=== PATIENT | male | born 1930 | race Caucasian/White ===

== ENCOUNTER 2017-05-13 09:18 | Outpatient (CLI) | payer MEDICARE, OTHER ==
--- NOTE | 2017-05-14 10:05 | XRAY Report ---
DATE OF SERVICE: 05/13/2017 RIGHT KNEE: 05/13/2017 COMPARISON: None. INDICATION: Knee joint pain. TECHNIQUE: Three views of the right knee. FINDINGS: There are mild tricompartmental degenerative changes. No effusion. No evidence of acute fracture. Anatomic alignment. There are several posterior ossific fragments. Difficult to completely exclude a loose body. IMPRESSION: 1. MILD TRICOMPARTMENTAL OSTEOARTHRITIS. 2. POSTERIOR LOOSE BODY DIFFICULT TO EXCLUDE. CORRELATE CLINICALLY. TD: 05/14/2017 10:38 MTDD
== END 2017-05-13 09:19 | disposition home or self-care (01) ==
LOC: DI 09:18
PROVIDERS: ATTEND Internal Medicine
DX: M17.11 Unilateral primary osteoarthritis, right knee (principal)

== ENCOUNTER 2018-05-12 08:00 | Outpatient (CLI) | payer MEDICARE, OTHER ==
[2018-05-12 13:40] LABS: BASOPHILS % (AUTO) 0.3 %; EOSINOPHILS # (AUTO) 0.1 10^3/uL (0.0-0.7); EOSINOPHILS % (AUTO) 2.8 %; HGB - HEMOGLOBIN 13.7 g/dL (14.0-18.0); LYMPHOCYTES # (AUTO) 0.6 10^3/uL (1.5-3.5); LYMPHOCYTES % (AUTO) 12.2 %; MEAN CORPUSCULAR HEMOGLOBIN 33.5 pg (27.0-31.0); MEAN CORPUSCULAR HGB CONC 34.9 g/dL (32.0-36.0); MEAN CORPUSCULAR VOLUME 95.9 fL (80.0-94.0); MEAN PLATELET VOLUME 8.8 fL (7.4-11.4); MONOCYTES # (AUTO) 0.5 10^3/uL (0.0-1.0); MONOCYTES % (AUTO) 10.4 %; NEUTROPHILS # (AUTO) 3.7 10^3/uL (1.5-6.6); NEUTROPHILS % (AUTO) 74.3 %; PLT - PLATELET COUNT 169 10^3/uL (130-450); RED BLOOD COUNT 4.09 10^6/uL (4.70-6.10); RED CELL DISTRIBUTION WIDTH 13.3 % (12.0-15.0)
[2018-05-12 13:51] LABS: ALBUMIN 4.4 g/dL (3.2-5.5); ALBUMIN/GLOBULIN RATIO 1.9 (1.0-2.2); BILIRUBIN,TOTAL 0.7 mg/dL (0.2-1.0); CALCIUM 9.5 mg/dL (8.5-10.3); TOTAL PROTEIN 6.7 g/dL (6.7-8.2)
== END 2018-05-12 23:59 | disposition home or self-care (01) ==
LOC: LAB.R 08:00
PROVIDERS: ATTEND Internal Medicine
DX: I48.91 Unspecified atrial fibrillation (principal)
CPT/HCPCS: 80053; 84443; 84484; 85025

== ENCOUNTER 2018-05-14 08:19 | Outpatient (CLI) | payer MEDICARE, OTHER | END 2018-05-14 08:20 | disposition home or self-care (01) | LOC: DI 08:19 | PROVIDERS: ATTEND Internal Medicine | DX: I48.91 Unspecified atrial fibrillation (principal); I51.7 Cardiomegaly | CPT/HCPCS: 93306 ==

== ENCOUNTER 2019-09-22 10:32 | Outpatient (CLI) | payer MEDICARE, OTHER ==
[2019-09-22 13:04] LABS: BASOPHILS % (AUTO) 0.2 %; EOSINOPHILS # (AUTO) 0.2 10^3/uL (0.0-0.7); HGB - HEMOGLOBIN 13.1 g/dL (14.0-18.0); LYMPHOCYTES # (AUTO) 0.6 10^3/uL (1.5-3.5); LYMPHOCYTES % (AUTO) 13.2 %; MEAN CORPUSCULAR HEMOGLOBIN 34.4 pg (27.0-31.0); MEAN PLATELET VOLUME 11.7 fL (7.4-11.4); MONOCYTES # (AUTO) 0.5 10^3/uL (0.0-1.0); NEUTROPHILS # (AUTO) 3.2 10^3/uL (1.5-6.6); NEUTROPHILS % (AUTO) 71.2 %; PLT - PLATELET COUNT 163 10^3/uL (130-450); RED BLOOD COUNT 3.81 10^6/uL (4.70-6.10); RED CELL DISTRIBUTION WIDTH 12.5 % (12.0-15.0); WHITE BLOOD COUNT 4.6 x10^3/uL (4.8-10.8)
[2019-09-22 13:49] LABS: ALBUMIN/GLOBULIN RATIO 1.5 (1.0-2.2); ALKALINE PHOSPHATASE 60 IU/L (42-121); ALT ALANINE AMINOTRANSFERASE 17 IU/L (10-60); AST ASPARTATE AMINOTRANSFERASE 17 IU/L (10-42); BILIRUBIN,TOTAL 0.8 mg/dL (0.2-1.0); BUN - BLOOD UREA NITROGEN 28 mg/dL (6-20); CALCIUM 8.9 mg/dL (8.5-10.3); CARBON DIOXIDE - CO2 26 mmol/L (21-32); CHLORIDE 107 mmol/L (101-111); CHOL/HDL RATIO 2.3 (<5.0); CHOLESTEROL 116 mg/dL; CREATININE 1.2 mg/dL (0.6-1.2); GLUCOSE 92 mg/dL (70-100); HDL CHOLESTEROL 50 mg/dL; LDL CHOLESTEROL,CALCULATED 44 mg/dL; LDL/HDL RATIO 0.9 (<3.6); SODIUM 139 mmol/L (135-145); TOTAL PROTEIN 6.6 g/dL (6.7-8.2); VLDL CHOLESTEROL 22 mg/dL
== END 2019-09-22 23:59 | disposition home or self-care (01) ==
LOC: LAB.WCP 10:32
PROVIDERS: ATTEND Family Medicine
DX: I48.91 Unspecified atrial fibrillation (principal); E78.5 Hyperlipidemia, unspecified; I25.10 Atherosclerotic heart disease of native coronary artery without angina pectoris; I10 Essential (primary) hypertension
CPT/HCPCS: 36415; 80053; 80061; 83721; 84443; 85025

== ENCOUNTER 2019-11-27 17:37 | Outpatient (CLI) | payer MEDICARE, OTHER | END 2019-11-27 17:38 | disposition critical access hospital (66) | LOC: EMS 17:37 | PROVIDERS: ATTEND Surgery | DX: R53.1 Weakness (principal); R53.83 Other fatigue | CPT/HCPCS: A0425; A0429 ==

== ENCOUNTER 2019-11-27 17:43 | Emergency (ER) | payer MEDICARE, OTHER ==
--- NOTE | 2019-11-27 18:04 | ED Physician Documentation ---
PD HPI ALTERED MENTAL STATUS - Stated complaint Stated Complaint: WEAKNESS - Chief complaint Chief Complaint: Neuro - History obtained from History obtained from: Patient - Additional information Additional information: 89-year-old gentleman with history of coronary disease atrial fibrillation. 22 years he had a two-vessel bypass. For the last 4 days he has had profound fatigue, especially his exertional which was his anginal equivalent 22 years ago necessitating the bypass. There is no associated chest pain, trouble breathing, pedal edema. He feels even slightly weak at rest but it is worse with exertion or walking. Review of Systems Ten Systems: 10 systems reviewed and negative Constitutional: denies: Fever, Chills Cardiac: denies: Chest pain / pressure, Palpitations Respiratory: denies: Dyspnea, Cough GI: denies: Abdominal Pain, Nausea, Bloody / black stool PD PAST MEDICAL HISTORY - Allergies Allergies/Adverse Reactions: Allergies Allergy/AdvReac Type Severity Reaction Status Date / Time No Known Drug Allergies Allergy Verified 11/27/19 17:59 PD ED PE NORMAL - Vitals Vital signs reviewed: Yes - General General: Alert and oriented X 3, No acute distress - HEENT HEENT: PERRL, EOMI - Neck Neck: Supple, no meningeal sign, No bony TTP - Cardiac Cardiac: Other (Irregularly irregular without murmur) - Respiratory Respiratory: No respiratory distress, Clear bilaterally - Abdomen Abdomen: Normal bowel sounds, Soft, Non tender - Back Back: No CVA TTP, No spinal TTP - Derm Derm: Normal color, Warm and dry - Extremities Extremities: No edema, No calf tenderness / cord - Neuro Neuro: Alert and oriented X 3, Normal speech Results - Vitals Vitals: Vital Signs - 24 hr 11/27/19 11/27/19 17:50 18:36 Temperature 37.0 C Heart Rate 85 85 Respiratory 18 18 Rate Blood Pressure 145/80 H 102/81 H O2 Saturation 100 99 Oxygen O2 Source Room air - EKG (time done) 1755 Rate: Rate (enter#) (87) Rhythm: Atrial fibrillation [place]: Normal QRS: Normal Ischemia: ST depression (inferior) Computer interpretation: Agree with computer - Labs Labs: Laboratory Tests 11/27/19 11/27/19 11/27/19 18:11 18:11 18:11 WBC 5.7 RBC 3.98 L Hgb 13.4 L Hct 38.8 L MCV 97.5 H MCH 33.7 H MCHC 34.5 RDW 12.6 Plt Count 160 MPV 10.5 Neut # (Auto) 4.1 Lymph # (Auto) 0.7 L Ray # (Auto) 0.7 Eos # (Auto) 0.1 Baso # (Auto) 0.0 Absolute Nucleated RBC 0.00 Nucleated RBC % 0.0 Sodium 138 Potassium 4.4 Chloride 102 Carbon Dioxide 23 Anion Gap 13.0 BUN 29 H Creatinine 1.2 Estimated GFR (MDRD) 57 L Glucose 113 H Calcium 9.5 Total Bilirubin 1.0 AST 16 ALT 17 Alkaline Phosphatase 57 Troponin I High Sens 4.7 Total Protein 7.1 Albumin 4.5 Globulin 2.6 Albumin/Globulin Ratio 1.7 Lipase 38 Urine Color Urine Clarity Urine pH Ur Specific [place] Urine Protein Urine Glucose (UA) Urine Ketones Urine Occult Blood Urine Nitrite Urine Bilirubin Urine Urobilinogen Ur Leukocyte Esterase Ur Microscopic Review Urine Culture Comments 11/27/19 18:17 WBC RBC Hgb Hct MCV MCH MCHC RDW Plt Count MPV Neut # (Auto) Lymph # (Auto) Ray # (Auto) Eos # (Auto) Baso # (Auto) Absolute Nucleated RBC Nucleated RBC % Sodium Potassium Chloride Carbon Dioxide Anion Gap BUN Creatinine Estimated GFR (MDRD) Glucose Calcium Total Bilirubin AST ALT Alkaline Phosphatase Troponin I High Sens Total Protein Albumin Globulin Albumin/Globulin Ratio Lipase Urine Color YELLOW Urine Clarity CLEAR Urine pH 5.0 Ur Specific [place] 1.025 Urine Protein NEGATIVE Urine Glucose (UA) NEGATIVE Urine Ketones NEGATIVE Urine Occult Blood TRACE-INTA Urine Nitrite NEGATIVE Urine Bilirubin NEGATIVE Urine Urobilinogen 0.2 (NORMAL) Ur Leukocyte Esterase NEGATIVE Ur Microscopic Review NOT INDICATED Urine Culture Comments NOT INDICATED - Rads (name of study) 1v chest xr Radiology: EMP read contemporaneously (Trace left-sided pleural effusion versus pleural parenchymal scarring) PD MEDICAL DECISION MAKING - ED course ED course: 89-year-old gentleman presents with generalized weakness. He feels that this could be a equivalents of his angina that necessitated a coronary bypass 22 years ago. Other than being in atrial fibrillation which is not a new phenomenon, and he is rate controlled, there are no physical or lab findings of concern tonight. Offered to place him in observation for stress testing tomorrow versus writing an email to his physician and close follow-up with his physician to arrange for a stress test and he opted for the latter. He understands the need to return immediately if he develops chest pain, trouble breathing, or worsens. Departure - Departure Disposition: 01 Home, Self Care Clinical Impression: Fatigue Qualifiers: Fatigue type: chronic, unspecified Qualified Code(s): R53.82 - Chronic fatigue, unspecified Condition: Good Record reviewed to determine appropriate education?: Yes Instructions: ED Weakness UKO Comments: Other than being in atrial fibrillation, your heart testing tonight is unremarkable. That said coronary disease is not completely ruled out based on this evaluation and you probably need to have a stress test in the very near future. I will email your primary care physician with this information, but I suggest you call him tomorrow to close the loop. As discussed, you need to return immediately if you develop chest pain, trouble breathing, passing out, or other new or worsening or concerning symptoms.
[2019-11-27 18:17] LABS: BASOPHILS % (AUTO) 0.4 %; EOSINOPHILS # (AUTO) 0.1 10^3/uL (0.0-0.7); EOSINOPHILS % (AUTO) 2.5 %; HGB - HEMOGLOBIN 13.4 g/dL (14.0-18.0); LYMPHOCYTES # (AUTO) 0.7 10^3/uL (1.5-3.5); LYMPHOCYTES % (AUTO) 12.3 %; MEAN CORPUSCULAR HEMOGLOBIN 33.7 pg (27.0-31.0); MEAN CORPUSCULAR HGB CONC 34.5 g/dL (32.0-36.0); MEAN CORPUSCULAR VOLUME 97.5 fL (80.0-94.0); MEAN PLATELET VOLUME 10.5 fL (7.4-11.4); MONOCYTES # (AUTO) 0.7 10^3/uL (0.0-1.0); MONOCYTES % (AUTO) 12.3 %; NEUTROPHILS # (AUTO) 4.1 10^3/uL (1.5-6.6); PLT - PLATELET COUNT 160 10^3/uL (130-450); RED BLOOD COUNT 3.98 10^6/uL (4.70-6.10); RED CELL DISTRIBUTION WIDTH 12.6 % (12.0-15.0); WHITE BLOOD COUNT 5.7 x10^3/uL (4.8-10.8)
--- NOTE | 2019-11-27 18:17 | XRAY Report ---
PROCEDURE: Chest 1 View X-Ray INDICATIONS: fatigue TECHNIQUE: One view of the chest was acquired. COMPARISON: None FINDINGS: Surgical changes and devices: Status post CABG. Lungs and pleura: Blunting of the left costophrenic angle which may be due to scarring versus trace p leural effusion.. Mediastinum: Mediastinal contours appear normal. Heart size is normal. Bones and chest wall: No suspicious bony lesions. Overlying soft tissues appear unremarkable. IMPRESSION: Trace left-sided pleural effusion versus pleural-parenchymal scarring.. Reviewed by: Heather Dallas MD, PhD on 11/27/2019 6:16 PM PDT Approved by: Heather Dallas MD, PhD on 11/27/2019 6:16 PM PDT Station ID: [id number]
[2019-11-27 18:30] LABS: BILIRUBIN,URINE NEGATIVE (NEGATIVE); GLUCOSE, URINE (UA) NEGATIVE (NEGATIVE); KETONES,URINE (UA) NEGATIVE (NEGATIVE); LEUKOCYTE ESTERASE, URINE NEGATIVE (NEGATIVE); NITRITE,URINE NEGATIVE (NEGATIVE); OCCULT BLOOD,URINE TRACE-INTA (NEGATIVE); PROTEIN,URINE NEGATIVE (NEGATIVE); UROBILINOGEN,URINE 0.2 (NORMAL) E.U./dL (NORMAL)
[2019-11-27 18:31] LABS: CLARITY,URINE CLEAR (CLEAR)
[2019-11-27 18:31] LABS: ALBUMIN 4.5 g/dL (3.2-5.5); ALBUMIN/GLOBULIN RATIO 1.7 (1.0-2.2); CALCIUM 9.5 mg/dL (8.5-10.3); CREATININE 1.2 mg/dL (0.6-1.2); TOTAL PROTEIN 7.1 g/dL (6.7-8.2)
[2019-11-27 19:24] VITALS: BP 106/80
== END 2019-11-27 19:22 | disposition home or self-care (01) ==
LOC: EDUNIT# → ED 17:43
DX: R53.82 Chronic fatigue, unspecified (principal); I48.91 Unspecified atrial fibrillation
CPT/HCPCS: 36415; 71045; 80053; 81001; 81003; 83690; 84443; 84484; 85025; 87086; 93005; 99284